=== PATIENT | female | born 1985 | race Caucasian/White ===

== ENCOUNTER 2020-07-15 03:08 | Emergency (ER) | payer OTHER ==
[~2020-07-15] VITALS: Ht 152.4 cm; Wt 77.3 kg
[~2020-07-15 03:08] MED LIST: NOCURR
[2020-07-15] MEDS ORDERED: FentaNYL CITRATE PF 100 MCG/2 ML VIAL IVP ONE (03:30)
[2020-07-15] MEDS ORDERED: FentaNYL CITRATE PF 100 MCG/2 ML VIAL IM ONE (03:45)
[2020-07-15 04:09] VITALS: BP 130/86
== END 2020-07-15 04:41 | disposition home or self-care (01) ==
LOC: EMS 03:09
DX: S50.02XA Contusion of left elbow, initial encounter (principal); Z90.89 Acquired absence of other organs; W06.XXXA Fall from bed, initial encounter; Y93.89 Activity, other specified; Y92.89 Other specified places as the place of occurrence of the external cause; Y99.8 Other external cause status
CPT/HCPCS: 29105; 96372; 99284; J3010

== ENCOUNTER 2022-12-11 12:07 | Emergency (ER) | payer OTHER ==
[~2022-12-11] VITALS: Ht 152.4 cm; Wt 51.8 kg
[2022-12-11 12:17] VITALS: BP 107/69; PULSE 78; RESP 18; TEMP 98
[2022-12-11] MEDS ORDERED: RABIES VACCINE, HUMAN DIPLOID/PF 2.5 UNITS/ML VIAL IM. ONE (12:45)
[2022-12-11] MEDS ORDERED: BACITRACIN 0.9 GM PACKET OINTMENT TP ONE (12:45)
[2022-12-11] MEDS ORDERED: AMOX TR/POT CLAV 875 MG/125 MG TABLET PO ONE (12:45)
[2022-12-11] MEDS ORDERED: PERTUSS(ACELL),DIPH,TET VAC/PF 0.5 ML SYRINGE IM. ONE (12:45)
[2022-12-11] MEDS ORDERED: RABIES IMMUNE GLOBULIN/PF 150 UNIT/ML 10 ML VIAL IM. ONE (12:45)
[2022-12-11] MEDS ORDERED: AMOX1TAB16 PO (13:04)
== END 2022-12-11 13:43 | disposition home or self-care (01) ==
LOC: EMS 12:08
DX: S81.851A Open bite, right lower leg, initial encounter (principal); Z90.49 Acquired absence of other specified parts of digestive tract; W54.0XXA Bitten by dog, initial encounter; Y93.89 Activity, other specified; Y92.89 Other specified places as the place of occurrence of the external cause; Y99.8 Other external cause status
CPT/HCPCS: 90375; 90471; 90472; 90675; 90715; 96372; 99284

== ENCOUNTER 2022-12-14 11:50 | Emergency (ER) | payer OTHER ==
[~2022-12-14] VITALS: Ht 154.9 cm; Wt 50.9 kg
[~2022-12-14 11:50] MED LIST changes: +AMOX1TAB16 PO
[2022-12-14 11:52] VITALS: BP 123/63; PULSE 76; RESP 18; TEMP 98.3
[2022-12-14] MEDS ORDERED: CYAN250014 PO (11:52)
[2022-12-14] MEDS ORDERED: RABIES VACCINE, HUMAN DIPLOID/PF 2.5 UNITS/ML VIAL IM. ONE (12:00)
[2022-12-14] MEDS ORDERED: ONDA-104 PO (12:05)
== END 2022-12-14 12:40 | disposition home or self-care (01) ==
LOC: EMS 11:58
DX: S81.851D Open bite, right lower leg, subsequent encounter (principal); Z29.14 Encounter for prophylactic rabies immune globulin; Z90.49 Acquired absence of other specified parts of digestive tract; W54.0XXD Bitten by dog, subsequent encounter
CPT/HCPCS: 90471; 90675; 99283

== ENCOUNTER 2022-12-18 12:03 | Emergency (ER) | payer OTHER ==
[~2022-12-18] VITALS: Ht 152.4 cm; Wt 47.7 kg
[~2022-12-18 12:03] MED LIST changes: +CYAN250014 PO; -NOCURR; +ONDA-104 PO
[2022-12-18 12:04] VITALS: BP 121/63; PULSE 77; RESP 17; TEMP 98.4
[2022-12-18] MEDS ORDERED: RABIES VACCINE, HUMAN DIPLOID/PF 2.5 UNITS/ML VIAL IM. ONE (12:30)
== END 2022-12-18 13:26 | disposition home or self-care (01) ==
LOC: EMS 12:15
DX: S81.851D Open bite, right lower leg, subsequent encounter (principal); Z29.14 Encounter for prophylactic rabies immune globulin; Z90.49 Acquired absence of other specified parts of digestive tract; W54.0XXD Bitten by dog, subsequent encounter
CPT/HCPCS: 90471; 90675; 99283

== ENCOUNTER 2022-12-25 10:21 | Emergency (ER) | payer OTHER ==
[~2022-12-25] VITALS: Ht 154.9 cm; Wt 59.1 kg
[2022-12-25 10:24] VITALS: TEMP 98.2
[2022-12-25] MEDS ORDERED: RABIES VACCINE, HUMAN DIPLOID/PF 2.5 UNITS/ML VIAL IM. ONE (11:15)
[2022-12-25 11:36] VITALS: BP 118/68; PULSE 84; RESP 18
== END 2022-12-25 11:58 | disposition home or self-care (01) ==
LOC: EMS 10:24
DX: Z29.14 Encounter for prophylactic rabies immune globulin (principal); Z90.49 Acquired absence of other specified parts of digestive tract
CPT/HCPCS: 90471; 90675; 99281